=== PATIENT | male | born 1990 | race Two or more races ===

== ENCOUNTER 2023-03-15 20:30 | Emergency (ER) | payer OTHER ==
[~2023-03-15] VITALS: Ht 167.6 cm; Wt 122.5 kg
== END 2023-03-15 21:39 | disposition home or self-care (01) ==
LOC: ER 20:30
DX: T16.2XXA Foreign body in left ear, initial encounter (principal); W45.8XXA Other foreign body or object entering through skin, initial encounter; Y93.89 Activity, other specified; Y92.89 Other specified places as the place of occurrence of the external cause; Y99.9 Unspecified external cause status